=== PATIENT | female | born 1985 | race Caucasian/White ===

== ENCOUNTER 2022-10-06 22:53 | Emergency (ER) | payer BC, SELFPAY ==
--- NOTE | ~2022-10-06 | XR_ITS ---
EXAMINATION: XR CHEST CLINICAL INFORMATION: Chest pain COMPARISON: None available. TECHNIQUE: Frontal view of the chest was obtained. FINDINGS: No significant abnormality is noted involving the heart, lungs, mediastinum, bony thorax or soft tissues. XR/XR chest 1V IMPRESSION: Unremarkable examination.
[2022-10-06 22:58] VITALS: BP 122/78; PULSE 98; O2SAT 96; BMI 36.8
--- NOTE | 2022-10-06 22:59 | ECG_ITS ---
Test Reason : CHEST PAIN Blood Pressure : / mmHG Vent. Rate : 095 BPM Atrial Rate : 095 BPM P-R Int : 124 ms QRS Dur : 064 ms QT Int : 362 ms P-R-T Axes : 037 041 036 degrees QTc Int : 454 ms Normal sinus rhythm T wave abnormality, consider anterior ischemia Abnormal ECG No previous ECGs available Referred By: Jessie Jade Electronically Signed By:Daniel Frias
[2022-10-06 23:12] VITALS: BP 108/51; PULSE 94; RESP 17; TEMP 37.2; O2SAT 93
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
--- OUTSIDE RECORDS SUMMARY | 2022-10-07 00:14 | XMS_ITS | Continuity of Care Document ---
Author Name Unknown Organization [facility] Address [address] [place] [address], 4t [place] [address]- Care Team Providers Care Nursing Informatics Clinical Analyst Name Role Phone Charles Zamora DO Primary Care Physician [id number] Date(s): 11/21/21 - 11/28/21 [facility] [address] [facility], 4th [place] [address]- Attending Physician: Jaycee Mcgee MD Referring Physician: Charles Zamora DO Allergies, Adverse Reactions, Alerts No Known Allergies Immunizations Given and Recorded Vaccine Date Status Refusal Reason tetanus/diphtheria/pertussis, acel(Tdap) 11/20/10 Given Medications cipro cipro, 0 Refills, Maintenance, 11/21/21 9:11:00 EDT Start Date: 11/21/21 Status: Ordered Liletta 52 mg intrauteral device 1 each = 52 mg, Vaginally, Once, Inserted 04/15/2016, # 1 each, 0 Refills, Soft Stop, 11/27/15 16:57:29 Start Date: 11/27/15 Status: Ordered magnesium oxide 400 mg oral tablet 1 tablet = 400 mg, By Mouth, Daily, # 100 tablet, 3 Refills, Maintenance, 08/05/20 17:35:00 EDT, [id number], Partial fill upon patient request if the prescription is for a schedule II opioid drug., 155, cm, 05/28/20 11:08:00 EST, Height Start Date: 08/05/20 Status: Ordered riboflavin 400 mg oral capsule 1 capsule = 400 mg, By Mouth, Daily, # 100 capsule, 3 Refills, Maintenance, 08/05/20 17:35:00 EDT, Capsule, [id number], Partial fill upon patient request if the prescription is for a scheduleII opioid drug., 155, cm, 05/28/20 11:08:00 Karen FREED. Start Date: 08/05/20 Status: Ordered Topamax 50 mg oral tablet See Instructions, 2 tablets in AM and 1 in PM, 0 Refills, Maintenance, 08/28/21 11:31:00 EDT, Tablet, Partial fill upon patient request if the prescription is for a schedule II opioid drug. 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
--- OUTSIDE RECORDS SUMMARY | 2022-10-07 00:14 | XMS_ITS | Continuity of Care Document ---
Author Name Unknown Organization [facility] Address [address] [facility], [address] [place] [address]- Care Team Providers Care Mobile Service Rv Technician Name Role Phone Charles Zamora DO Primary Care Physician [place] [facility] [place] [facility] [place] Date(s): 01/26/22 - 02/25/22 [facility] [address] [facility] [facility], 4th [place] [address]- Attending Physician: Qian Will Admitting Physician: AdmQian walden Referring Physician: AdmtrQian Allergies, Adverse Reactions, Alerts No Known Allergies Immunizations Given and Recorded Vaccine Date Status Refusal Reason tetanus/diphtheria/pertussis, acel(Tdap) 11/20/10 Given Medications cipro cipro, 0 Refills, Maintenance, 11/21/21 9:11:00 EDT Start Date: 11/21/21 Status: Ordered Citalopram By Mouth, Daily, 0 Refills, Maintenance, 12/02/21 17:30:00 EDT, Partial fill upon patient request if the prescription is for a schedule II opioid drug. Start Date: 12/02/21 Status: Ordered Diflucan 150 mg oral tablet 1 tablet = 150 mg, By Mouth, Once, # 1 tablet, 0 Refills, Soft Stop, 12/17/21 14:39:00 EDT, Tablet,[id number], Partial fill upon patient request if the prescription is for a schedule II opioid drug., 155, cm, 12/12/21 13:16:00 EDT, Height Start Date: 12/17/21 Status: Ordered Liletta 52 mg intrauteral device 1 each = 52 mg, Vaginally, Once, Inserted 04/15/2016, # 1 each, 0 Refills, Soft Stop, 11/27/15 16:57:29 EDT, [facility] Start Date: 11/27/15 Status: Ordered magnesium oxide 400 mg oral tablet 1 tablet = 400 mg, By Mouth, Daily, # 100 tablet, 3 Refills, Maintenance, 08/05/20 17:35:00 EDT, [facility]/pharmacy #[id number], Partial fill upon patient request if [...] scheduleII opioid drug., 155, cm, 05/28/20 11:08:00 EST, He... Start Date: 08/05/20 Status: Ordered Saxenda = 1.2 mg, Subcutaneous Infusion, Daily, 0 Refills, Maintenance, 12/02/21 17:29:00 EDT, Partial fillupon patient request if the prescription is for a schedule II opioid drug. Start Date: 12/02/21 Status: Ordered Topamax 50 mg oral tablet See Instructions, 2 tablets in AM and 1 in PM, 0 Refills, Maintenance, 08/28/21 11:31:00 EDT, Tablet, Partial fill upon patient request if the prescription is for a schedule II opioid drug. Start Date: 08/28/21 Status: Ordered Problem List Condition Confirmation Course Effective Dates Status Health St atus Informant Cystic fibrosis carrier detection Confirmed Active Obese class I Confirmed Active Social History Social History Type Response Smoking Status Former smoker, quit more than 30 days ago entered on: 03/14/19 Sex Patient Care team information Personnel Name: Anusitatravis Charles ROBERTO Address: Address: [address] [place] [address] [address] [place], [place] [address]
--- OUTSIDE RECORDS SUMMARY | 2022-10-07 00:14 | XMS_ITS | Continuity of Care Document ---
Author Name Unknown Organization [facility] Address [address] [facility], [address] d Floor, [address] [place] [address]- Care Team Providers Care Budget Examiner Name Role Phone Charles Zamora DO Primary Care Physician En[place] [facility] [place] Date(s): 08/05/20 - 09/04/20 [facility] [address], [address], [address] [place] [id number] Attending Physician: Qian Will Admitting Physician: AdmtrQian Referring Physician: Admtr, Ar8 Allergies, Adverse Reactions, Alerts Substance Reaction Severity Status NKA Active Immunizations Given and Recorded Vaccine Date Status Refusal Reason tetanus/diphtheria/pertussis, acel(Tdap) 11/20/10 Given Medications Liletta 52 mg intrauteral device 1 each [...] EST, He... Start Date: 08/05/20 Status: Ordered Topamax Tablet By Mouth, 2 times a day, Refills 0, Maintenance, 03/14/19 18:13:13 EST Start Date: 03/14/19 Status: Ordered topiramate 100 mg oral tablet 1 tablet = 100 mg, By Mouth, 2 times a day, # 180 tablet, 3 Refills, Maintenance, 08/05/20 17:38:00EDT, Tablet, [facility]/pharm[facility] #[id number], Partial fill upon patient request if the prescription is for a schedule II opioid drug., 155, cm, 05/28/20 11:08:00 ES... 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
--- OUTSIDE RECORDS SUMMARY | 2022-10-07 00:14 | XMS_ITS | Continuity of Care Document ---
Author Name Unknown Organization [facility] Address Unknown Care Team Providers Care Compliance Consultant Name Role Phone Charles Zamora DO Primary Care Physician [place] [facility] [place](s): 03/03/21 - 04/02/21 [facility] Attending Physician: Qian Will Admitting Physician: Qian Will Referring Physician: Qian Will Allergies, Adverse Reactions, Alerts Substance Reaction Severity [...] EST, Height Start Date: 08/05/20 Status: Ordered meclizine 12.5 mg oral tablet See Instructions, 1 tablet By Mouth as needed for vertigo/ dizziness. Not to exceed 2 doses in a day., # 15 tablet, 0 Refills, Maintenance, 11/11/20 18:08:00 EDT, [id number], Partial fill upon patient request if the prescription is for a sched... Start Date: 11/11/20 Status: Ordered riboflavin 400 mg oral capsule [...] day, # 180 tablet, 3 Refills, Maintenance, 03/03/21 17:02:00EDT, Tablet, [id number], Partial fill upon patient request if the prescription is for a schedule II opioid drug., 155, cm, 05/28/20 11:08:00 ES... Start Date: 03/03/21 Status: Ordered topiramate 50 mg oral tablet 1 tablet = 50 mg, By Mouth, Daily, # 90 tablet, 3 Refills, Maintenance, 03/03/21 17:02:00 EDT, [facility]/pharmacy #[id number], Partial fill upon patient request if the prescription is for a schedule II opioid drug., 155, cm, 05/28/20 11:08:00 EST, Height Start Date: 03/03/21 Status: Ordered Wellbutrin By Mouth, 0 Refills, Maintenance, 03/14/19 18:13:26 EST Start Date: 03/14/19 Status: Ordered Zofran 4 mg oral tablet 1 tablet = 4 mg, By Mouth, Once, 1 tablet by mouth as needed for nausea, # 15 tablet, 0 Refills, Soft Stop, 11/11/20 18:08:00 EDT, Tablet, [id number], Partial fill upon patient request if theprescription is for a schedule II opioid drug., 155... 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
--- OUTSIDE RECORDS SUMMARY | 2022-10-07 00:14 | XMS_ITS | Continuity of Care Document ---
Author Name Unknown Organization [facility] Address [address] [facility], 4t [place] [address]- Care Team Providers Care Burnt Lime Drawer Name Role Phone Charles Zamora DO Primary Care Physician En[facility] [place] Date(s): 11/18/21 - 12/18/21 [facility] [address] [facility], 4th [place] [address]- Allergies, Adverse Reactions, Alerts No Known Allergies [...] 0 Refills, Soft Stop, 12/17/21 14:39:00 EDT, Tablet,[facility]/pharmacy #[id number], Partial fill upon patient request if the prescription is for a schedule II opioid drug., 155, cm, 12/12/21 13:16:00 EDT, Height Start Date: 12/17/21 Status: Ordered Liletta 52 mg intrauteral device 1 each = 52 mg, Vaginally, Once, Inserted 04/15/2016, # 1 each, 0 Refills, Soft Stop, 11/27/15 16:57:29 EDT, [facility] Start Date: 11/27/15 Status: [...] carrier detection(Confirmed) Active Obese class I(Confirmed) Active Social History Social History Type Response Smoking Status Former smoker, quit more than 30 days ago entered on: 03/14/19 Sex
--- OUTSIDE RECORDS SUMMARY | 2022-10-07 00:14 | XMS_ITS | Continuity of Care Document ---
Author Name Unknown Organization [facility] Address Unknown Care Team Providers Care Wafer Substrate Tester Name Role Phone Charles Zamora DO Primary Care Physician En[facility] [place] Date(s): 03/03/21 - 04/02/21 [facility] Allergies, Adverse Reactions, Alerts Substance Reaction Severity [...] tablet, 3 Refills, Maintenance, 03/03/21 17:02:00 EDT, [id number], Partial fill upon patient [...]
--- OUTSIDE RECORDS SUMMARY | 2022-10-07 00:14 | XMS_ITS | Continuity of Care Document ---
Author Name Unknown Organization [facility] Address Unknown Care Team Providers Care Aircraft Cleaning Supervisor Name Role Phone Charles Zamora DO Primary Care Physician [place] [facility] [place] ACCT R [id number] Date(s): 11/14/20 - 02/06/21 [facility] Attending Physician: Thelma Batres Admitting Physician: Themla Batres Referring Physician: Charles Zamora DO Allergies, Adverse Reactions, Alerts Substance Reaction Severity [...] tablet, 3 Refills, Maintenance, 08/05/20 17:38:00EDT, Tablet, [id number], Partial fill upon patient [...]
--- OUTSIDE RECORDS SUMMARY | 2022-10-07 00:14 | XMS_ITS | Continuity of Care Document ---
Author Name Unknown Organization [facility] Address Unknown Care Team Providers Care Medical Malpractice Paralegal Name Role Phone Charles Zamora DO Primary Care Physician [place] [facility] [place] [id number] Date(s): 04/08/21 - 06/27/21 [facility] Attending Physician: Thelma Batres Admitting Physician: Thelma Batres Referring Physician: Charles Zamora DO Allergies, [...] EST, He... 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
--- OUTSIDE RECORDS SUMMARY | 2022-10-07 00:14 | XMS_ITS | Continuity of Care Document ---
Author Name Unknown Organization [facility] Address [address] [facility], [address] d Floor, [address] [place] [address]- Care Team Providers Care Steam Engineer Name Role Phone Charles Zamora DO Primary Care Physician [place] [facility] [place]10[place] - 01/24/22 [facility] [address], [address], [address] [place] [address]- Attending Physician: Ananya Rahman MD Admitting Physician: Ananya Rahman MD Allergies, Adverse Reactions, Alerts No Known Allergies [...] 0 Refills, Soft Stop, 12/17/21 14:39:00 EDT, Tablet,[id number], Partial fill upon patient request if the prescription is for a schedule II opioid drug., 155, cm, 12/12/21 13:16:00 EDT, Height Start Date: 12/17/21 Status: Ordered Liletta 52 mg intrauteral device 1 each = 52 mg, Vaginally, Once, Inserted 04/15/2016, # 1 each, 0 Refills, Soft Stop, 11/27/15 16:57:29 EDT, [facility] Start Date: 11/27/15 Status: [...] 30 days ago entered on: 03/14/19 Sex Care Team Personnel Name: Noah DO Charles Address: [address] [place] [address] [address] [place], [place] [address]
--- OUTSIDE RECORDS SUMMARY | 2022-10-07 00:14 | XMS_ITS | Continuity of Care Document ---
Author Name Unknown Organization [facility] Address [address] [facility], [address] Floor, [address] [place] [address]- Care Team Providers Care Respiratory Therapy Technician Name Role Phone Charles Zamora DO Primary Care Physician [place] [facility] [place](s): 06/06/20 - 07/06/20 [facility] [address], [address], [address] [place] [id number] Allergies, Adverse Reactions, Alerts Substance Reaction Severity Status NKA Active Immunizations Given and Recorded Vaccine Date Status Refusal Reason tetanus/diphtheria/pertussis, acel(Tdap) 11/20/10 Given Medications Liletta 52 mg intrauteral device 1 each = 52 mg, Vaginally, Once, Inserted 04/15/2016, # 1 each, 0 Refills, Soft Stop, 11/27/15 16:57:29 Start Date: 11/27/15 Status: Ordered Topamax Tablet By Mouth, 2 times a day, Refills 0, Maintenance, 03/14/19 18:13:13 EST Start Date: 03/14/19 Status: Ordered Wellbutrin By Mouth, 0 Refills, Maintenance, 03/14/19 18:13:26 EST Start Date: 03/14/19 Status: Ordered Problem List Condition Effective Dates Status Health Status Inform ant 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
--- OUTSIDE RECORDS SUMMARY | 2022-10-07 00:14 | XMS_ITS | Continuity of Care Document ---
Author Name Unknown Organization [facility] Address [address] [place] [address]- Care Team Providers Care Senior Air Director Name Role Phone Charles Zamora DO Primary Care Physician [place] [facility] [place] [id number] Date(s): 12/04/21 - 01/09/[address] [address] Attending Physician: Adrian Burton MD Admitting Physician: Adrian Burton MD Referring Physician: Adrian Burton MD Allergies, Adverse Reactions, Alerts No Known [...] 0 Refills, Soft Stop, 12/17/21 14:39:00 EDT, Tablet,[facility]acy #[id number], Partial fill upon patient request if the prescription is for a schedule II opioid drug., 155, cm, 12/12/21 13:16:00 EDT, Height Start Date: 12/17/21 Status: Ordered Liletta 52 mg intrauteral device 1 each = 52 mg, Vaginally, Once, Inserted 04/15/2016, # 1 each, 0 Refills, Soft Stop, 11/27/15 16:57:29 EDT, [facility] Start Date: 11/27/15 Status: Ordered [...] on: 03/14/19 Sex Care Team Personnel Name: Charles Zamora DO Address: [address] [place] [address] [address] [place] [address]-
--- OUTSIDE RECORDS SUMMARY | 2022-10-07 00:14 | XMS_ITS | Continuity of Care Document ---
Author Name Unknown Organization [facility] Address [address] [place] [address]- Care Team Providers Care Glass Rolling Machine Operator Name Role Phone DaviCharles rosenberg DO Primary Care Physician Encounter [facility] [place] Date(s): 01/04/22 - 02/18/[address] [address] Attending Physician: Jaycee Mcgee MD Admitting Physician: Jaycee Mcgee MD Referring Physician: Jaycee Mcgee MD Allergies, Adverse Reactions, Alerts No Known [...] 0 Refills, Soft Stop, 12/17/21 14:39:00 EDT, Tablet,[facility] #[id number], Partial fill upon patient request if the prescription is for a schedule II opioid drug., 155, cm, 12/12/21 13:16:00 EDT, Height Start Date: 12/17/21 Status: Ordered Liletta 52 mg intrauteral device 1 each = 52 mg, Vaginally, Once, Inserted 04/15/2016, # 1 each, 0 Refills, Soft Stop, 11/27/15 16:57:29 EDT, [facility] Start Date: 11/27/15 Status: Ordered [...] Sex Patient Care team information Personnel Name: Noah DO Charles Address: Address: [address] [place] [address] [address] [place], [place] [address]
--- OUTSIDE RECORDS SUMMARY | 2022-10-07 00:14 | XMS_ITS | Continuity of Care Document ---
Author Name Unknown Organization [facility] nTURN8s [facility] Address [address] [place] [address], 4t [place] [address]- Care Team Providers Care Audit Machine Operator Name Role Phone Charles Zamora DO Primary Care Physician [id number]12[facility] - 12/19/21 [facility] [address] [facility], 4th Floor [place], [place] [address] Attending Physician: Jaycee Mcgee MD Allergies, Adverse Reactions, [...] 0 Refills, Soft Stop, 12/17/21 14:39:00 EDT, Tablet,[id number], Partial fill upon patient request if the prescription is for a schedule II opioid drug., 155, cm, 12/12/21 13:16:00 EDT, Height Start Date: 12/17/21 Status: Ordered Liletta 52 mg intrauteral device 1 each = 52 mg, Vaginally, Once, Inserted 04/15/2016, # 1 each, 0 Refills, Soft Stop, 11/27/15 16:57:29 EDT, [facility] Start Date: 11/27/15 Status: [...] oldest [Reference Range]: 1 Height 155 cm (12/12/21 1:16 PM) Weight 72.72 kg (12/12/21 1:16 PM) Body Mass Index [18.5-24.99] 30.27 *>HHI* (12/12/21 1:16 PM) Blood Pressure [90-138/55-84 mm Hg] 127/ 70mm Hg (12/12/21 1:16 PM) Blood pressure sites Arm, left (12/12/21 1:16 PM) Weight Obtained Via Standing scale (12/12/21 1:16 PM) Social History Social History Type Response Smoking Status Former smoker, quit more than 30 days ago entered on: 03/14/19 Sex
--- OUTSIDE RECORDS SUMMARY | 2022-10-07 00:14 | XMS_ITS | Continuity of Care Document ---
Author Name Unknown Organization [facility] Address [address] [place] [address]- Care Team Providers Care Instructional Designer Name Role Phone Charles Zamora DO Primary Care Physician Encounter [facility] Date(s): 10/03/21 - 01/31/[address] [address]- Attending Physician: Adrian Burton MD Admitting Physician: Adrian Burton MD Referring Physician: Charles Zamora DO Allergies, [...] 0 Refills, Soft Stop, 12/17/21 14:39:00 EDT, Tablet,[facility]/pharmacy #[id number], Partial fill upon patient request if the prescription is for a schedule II opioid drug., 155, cm, 12/12/21 13:16:00 EDT, Height Start Date: 12/17/21 Status: Ordered Liletta 52 mg intrauteral device 1 each = 52 mg, Vaginally, Once, Inserted 04/15/2016, # 1 each, 0 Refills, Soft Stop, 11/27/15 16:57:29 EDT, [facility] Start Date: 11/27/15 Status: [...] Sex Patient Care team information Personnel Name: Charles Zamora DO Address: Address: [address] [place] [address] [address] [place], [place] [address]
--- OUTSIDE RECORDS SUMMARY | 2022-10-07 00:14 | XMS_ITS | Continuity of Care Document ---
Author Name Unknown Organization [facility] Address Unknown Care Team Providers Care Motorcycle Mechanic Name Role Phone Charles Zamora DO Primary Care Physician Encounter [facility] R [id number] Date(s): 05/26/21 - 06/26/21 [facility] Attending Physician: Thelma Batres Admitting Physician: [...]
--- OUTSIDE RECORDS SUMMARY | 2022-10-07 00:14 | XMS_ITS | Continuity of Care Document ---
Author Name Unknown Organization [facility] Address [address] [facility], 4t [place] [address]- Care Team Providers Care Automation Qa Lead Name Role Phone Charles Zamora DO Primary Care Physician Encounter [facility] Date(s): 12/15/21 - 02/25/22 [facility] [address] [facility], 4th [place], [place] [address] Attending Physician: Jaycee Mcgee MD Allergies, Adverse [...] 0 Refills, Soft Stop, 12/17/21 14:39:00 EDT, Tablet,[facility]/pharmacy #[id number], Partial fill upon patient request if the prescription is for a schedule II opioid drug., 155, cm, 12/12/21 13:16:00 EDT, Height Start Date: 12/17/21 Status: Ordered Liletta 52 mg intrauteral device 1 each = 52 mg, Vaginally, Once, Inserted 04/15/2016, # 1 each, 0 Refills, Soft Stop, 11/27/15 16:57:29 EDT, [facility] Start Date: 11/27/15 Status: [...] Personnel Name: Charles Zamora DO Address: Address: [address] [place] [address] [address] [place], [place] [address]
--- OUTSIDE RECORDS SUMMARY | 2022-10-07 00:15 | XMS_ITS | Continuity of Care Document ---
Author Name Unknown Organization [facility] Address [address] [facility], 3[address] d Floor, [address] [place] [address]- Care Team Providers Care General Accounting Clerk Name Role Phone Charles Zamora DO Primary Care Physician En[facility] Date(s): 07/02/20 - 08/01/20 [facility] [address], 3[address] Floor, [address] [place] [address] Allergies, Adverse Reactions, Alerts Substance Reaction Severity [...]
--- OUTSIDE RECORDS SUMMARY | 2022-10-07 00:15 | XMS_ITS | Continuity of Care Document ---
Author Name Unknown Organization [facility] Address Unknown Care Team Providers Care Shift Superintendent Caustic Cresylate Name Role Phone Charles Zamora DO Primary Care Physician Encounter [facility] Date(s): 04/08/21 - 05/08/21 [facility] Allergies, Adverse Reactions, Alerts Substance [...]
--- OUTSIDE RECORDS SUMMARY | 2022-10-07 00:15 | XMS_ITS | Continuity of Care Document ---
Author Name Unknown Organization [facility] Address Unknown Care Team Providers Care Middle School Technology Teacher Name Role Phone Charles Zamora DO Primary Care Physician Encounter [facility] Date(s): 05/27/21 - 06/26/21 [facility] Attending Physician: Qian Will Admitting Physician: Qian Will Referring Physician: Qian Will Allergies, Adverse Reactions, Alerts No Known Allergies [...]
--- OUTSIDE RECORDS SUMMARY | 2022-10-07 00:15 | XMS_ITS | Continuity of Care Document ---
Author Name Unknown Organization [facility] Address [address] [facility], [address] Floor, [address] [place] [address]- Care Team Providers Care Harvesting Supervisor Name Role Phone Charles Zamora DO Primary Care Physician Encounter [facility] Date(s): 12/25/21 - 01/24/22 [facility] [address] [facility], 3[address] Floor, [address] [place] [address]- Attending Physician: Qian Will Admitting Physician: AdmtrQian Referring Physician: Admtr, Ar8 Allergies, Adverse Reactions, Alerts No Known Allergies [...] 0 Refills, Soft Stop, 12/17/21 14:39:00 EDT, Tablet,[facility]/pharmacy #[id number], Partial fill upon patient request if the prescription is for a schedule II opioid drug., 155, cm, 12/12/21 13:16:00 EDT, Height Start Date: 12/17/21 Status: Ordered Liletta 52 mg intrauteral device 1 each = 52 mg, Vaginally, Once, Inserted 04/15/2016, # 1 each, 0 Refills, Soft Stop, 11/27/15 16:57:29 EDT, [facility] Start Date: 11/27/15 Status: [...] Team Personnel Name: Charles Zamora DO Address: [address] [place] [address] [address] [place], [place] [address]
--- OUTSIDE RECORDS SUMMARY | 2022-10-07 00:15 | XMS_ITS | Continuity of Care Document ---
Author Name Unknown Organization [facility] Address Unknown Care Team Providers Care Milk Inspector Name Role Phone Charles Zamora DO Primary Care Physician Encounter [facility] Date(s): 02/06/21 - 03/08/21 [facility] Allergies, Adverse Reactions, Alerts Substance Reaction [...]
--- OUTSIDE RECORDS SUMMARY | 2022-10-07 00:15 | XMS_ITS | Continuity of Care Document ---
Author Name Unknown Organization [facility] Address Unknown Care Team Providers Care Emergency Dispatch Operator Name Role Phone Charles Zamora DO Primary Care Physician [place] [facility] Date[place]s): 05/26/21 - 06/25/21 [facility] Allergies, Adverse Reactions, Alerts No Known Allergies [...]
--- OUTSIDE RECORDS SUMMARY | 2022-10-07 00:15 | XMS_ITS | Continuity of Care Document ---
Author Name Unknown Organization [facility] Address [address] [place] [address]- Care Team Providers Care Radiology Asst Name Role Phone Charles Zamora DO Primary Care Physician Encounter [facility] Date(s): 09/07/22 - 09/07/[address] [address]- Encounter Diagnosis Chest pain(Final) - 09/07/22 Chest pressure(Final) - 09/07/22 Discharge Disposition: A-D/C Home Attending Physician: Ben Coppola MD Admitting Physician: Ben Coppola MD Referring Physician: Not on Staff, Referring MD Allergies, Adverse Reactions, Alerts No Known Allergies Immunizations Given and Recorded Vaccine Date Status Refusal Reason tetanus/diphtheria/pertussis, acel(Tdap) 11/20/10 Given Medications cipro cipro, 0 Refills, Maintenance, 11/21/21 9:11:00 EDT Start Date: 11/21/21 Status: Ordered Diflucan 150 mg oral tablet 1 tablet = 150 mg, By Mouth, Once, # 1 tablet, 0 Refills, Soft Stop, 12/17/21 14:39:00 EDT, Tablet,[facility]/pharmacy #[id number], Partial fill upon patient request if the prescription is for a schedule II opioid drug., 155, cm, 12/12/21 13:16:00 EDT, Height Start Date: 12/17/21 Status: Ordered Liletta 52 mg intrauteral device 1 each = 52 mg, Vaginally, Once, Inserted 04/15/2016, # 1 each, 0 Refills, Soft Stop, 11/27/15 16:57:29 EDT, [facility] Start Date: 11/27/15 Status: Ordered [...] 3 Refills, Maintenance, 08/05/20 17:35:00 EDT, Capsule, [facility]/pharmacy #[id number], Partial fill upon patient request if the prescription is for a scheduleII opioid drug., 155, cm, 05/28/20 11:08:00 EST, He... Start Date: 08/05/20 Status: Ordered Saxenda = 1.2 mg, Subcutaneous Infusion, Daily, 0 Refills, Maintenance, 12/02/21 17:29:00 EDT, Partial fillupon patient request if the prescription is for a schedule II opioid drug. Start Date: 12/02/21 Status: Ordered sertraline 25 mg oral tablet 1 tablet = 25 mg, By Mouth, Daily, # 30 tablet, 0 Refills, Maintenance, 09/07/22 9:50:00 EDT, Tablet, Partial fill upon patient request if the prescription is for a schedule II opioid drug. Start Date: 09/07/22 Status: Ordered Topamax 50 mg oral tablet See Instructions, 2 tablets in AM and 1 in PM, 0 Refills, Maintenance, 08/28/21 11:31:00 EDT, Tablet, Partial fill upon patient request if the prescription is for a schedule II opioid drug. 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 FINDINGS: LINES AND TUBES: None. LUNGS AND PLEURA: Clear lungs. Normal pulmonary vascularity. No pleural effusion. No pneumothorax. HEART, MEDIASTINUM AND ALCIDES: Mild prominence of the cardiac silhouette particularly on the frontal view which may be due to magnification. Normal mediastinal and hilar contour. BONES AND SOFT TISSUES: No acute abnormality. IMPRESSION: No acute abnormality. Possible mild prominence of the cardiac silhouette. No evidence of pulmonary vascular congestion, focal bilateral lung parenchymal infiltrates or CHF noted. WSN: [id number] Ordering Physician: Tushar Arthur Dictated By: Jean Carlos Ibarra MD, V Dictated Date/Time: 09/07/22 10:51 a Reviewed By: Jean Carlos Ibarra MD, V Signed By: Jean Carlos Ibarra MD, V Signed Date/Time: 09/07/22 10:51 am Transcribed By: CARLOS Transcribed Date/Time: 09/07/22 10:50 am Vital Signs Most recent to oldest [Reference Range]: 1 2 3 Height 155 cm (09/07/22 11:01 AM) 155 cm (09/07/22 10:07 AM) 155 cm (09/07/22 9:49 AM) Weight 87.4 kg (09/07/22 9:49 AM) Oxygen Saturation [94-100 %] 96 % (09/07/22 11:01 AM) 98 % (09/07/22 10:07 AM) 96 % (09/07/22 9:49 AM) Pulse Rate [55-90 bpm] 70 bpm (09/07/22 11:01 AM) 62 bpm (09/07/22 10:07 AM) 70 bpm (09/07/22 9:49 AM) Blood Pressure [90-138/55-84 mm Hg] 113/72mm Hg (09/07/22 11:01 AM) 128/69mm Hg (09/07/22 10:07 AM) 131/80mm Hg (09/07/22 9:49 AM) Respiratory Rate [16-30 br/min] 20 br/min (09/07/22 11:01 AM) 18 br/min (09/07/22 10:07 AM) 17 br/min (09/07/22 9:49 AM) Temperature [96.8-100.4 DegF] 97 DegF (09/07/22 9:49 AM) Mode of Delivery (Oxygen) Room air (09/07/22 11:01 AM) Room air (09/07/22 10:07 AM) Room air (09/07/22 9:49 AM) Blood pressure sites Arm, right (09/07/22 11:01 AM) Arm, left (09/07/22 10:07 AM) Arm, right (09/07/22 9:49 AM) Temperature Route Oral (09/07/22 9:49 AM) Dry Weight 87.4 kg (09/07/22 9:49 AM) Social History Social History Type Response Smoking Status Former smoker, quit more than 30 days ago entered on: 03/14/19 Sex Note * Jena Morse MD: PERFORM, SIGN, VERIFY Event Display: Patient Education Handout Authored Date: [id number] * Jena Morse MD: PERFORM Event Display: Patient Education Leaflets Authored Date: [id number] Noncardiac Chest Pain ?? [id number] Noncardiac Chest Pain In most cases, people who come to the emergency room with chest pain don???t have a problem with their heart. Instead, the pain is caused by other conditions. It's important for the healthcare team to be sure you are not having a life-threatening cause for chest pain such as: ??? Heart attack ??? Blood clot in the lungs ??? Collapsed lung ??? Ruptured esophagus ??? Tearing of the aorta Once these major causes have been ruled out, you may have further evaluation for other causes of chest pain. These may be problems with the lungs, muscles, bones, digestive tract, nerves, or mental health. They include: ??? Inflammation around the lungs (pleurisy) ??? Collapsed lung (pneumothorax) ??? Lung inflammation (pleuritis or pneumonitis) ??? Fluid around the lung (pleural effusion) ??? Lung cancer (rare cause of chest pain) ??? Inflamed cartilage between the ribs (costochondritis) ??? Fibromyalgia ??? Rheumatoid arthritis ??? Chest wall strain ??? Reflux ??? Stomach ulcer ??? Spasms of the esophagus ??? Gall stones ??? Gallbladder inflammation ??? Panic or anxiety attacks ??? Emotional distress Your pain doesn???t seem to be coming from your heart. But sometimes the signs of a serious problemtake more time to appear. Continue to watch for the warning signs listed below. Home care Follow these guidelines when caring for yourself at home: ??? Rest today and don't do any strenuousactivity. ??? Take any prescribed medicine as directed. ?? Follow-up care Follow up with your healthcare provider as advised. ?? Call 911 Call 911 if any of these occur: ??? A change in the type of pain: if it feels different, becomes more severe, lasts longer, or begins to spread into your shoulder, arm, neck, jaw or back ??? Shortness of breath or increased pain with breathing ??? Weakness, dizziness, or fainting ??? Rapid heart beat ??? Crushing sensation in your chest ?? When to seek medical advice Call your healthcare provider right away if any of these occur: ??? Cough with dark colored sputum (phlegm) or blood ??? Fever of 100.4??F (38??C) or higher, or as directed by your healthcare provider ??? Swelling, pain or redness in one leg ?? Last Reviewed Date: 2021 ?? [id number] [employer]. All rights reserved. This information is not intended as a substitute for professional medical care. Always follow your healthcare professional's instructions. ?? Laboratory * [facility] , CIS S: TRANSCRIREY Ibarra MD, Jean Carlos V: VERIFY Event Display: Result: Authored Date: [id number] Chest 2 Views Frontal and Lat Hx of Present Illness: PT C O central CP onset yesterday @6am, nonraditing, no aggravating factors,constant pressure, 6 10.; Reason: Other:; Chest Pain; Clinical Question(s): Other: COMPARISON: 03/23/2012. FINDINGS: LINES AND TUBES: None. LUNGS AND PLEURA: Clear lungs. Normal pulmonary vascularity. No pleural effusion. No pneumothorax. HEART, MEDIASTINUM AND ALCIDES: Mild prominence of the cardiac silhouette particularly on the frontal view which may be due to magnification. Normal mediastinal and hilar contour. BONES AND SOFT TISSUES: No acute abnormality. IMPRESSION: No acute abnormality. Possible mild prominence of the cardiac silhouette. No evidence of pulmonary vascular congestion, focal bilateral lung parenchymal infiltrates or CHF noted. WSN: [id number] Ordering Physician: Tushar Arthur Dictated By: Jean Carlos Ibarra MD, V Dictated Date/Time: 09/07/22 10:51 a Reviewed By: Jean Carlos Ibarra MD, V Signed By: Jean Carlos Ibarra MD, V Signed Date/Time: 09/07/22 10:51 am Transcribed By: CARLOS Transcribed Date/Time: 09/07/22 10:50 am Patient Care team information Care Team Personnel Name: Charles Zamora DO Position: [facility] Physician (General Medicine) Member Role: PCP Address: Address: [address] [place], [place] [address] [place], [place] [address] Name: Jena Morse MD Position: [facility] Resident Member Role: ED Resident Address: Address: [address] [place] [address]- Name: Madhuri Kirby Position: [facility] ED TA [facility] Member Role: Patient Care Provider Name: Rachael Dyson RN Position: [facility] ED RN W/OE and Tasks Member Role: Patient Care Provider Name: Ben Coppola MD Position: [facility] ED Medicine MD Member Role: Admitting Physician Address: Address: [address] [place] [address]- Care Team Related Persons Name: JADE ASHLEY Address: [address] [place] [address]
--- OUTSIDE RECORDS SUMMARY | 2022-10-07 00:15 | XMS_ITS | Continuity of Care Document ---
Author Name Unknown Organization [facility] Address [address] [place] [address]- Care Team Providers Care Pattern Room Attendant Name Role Phone Charles Zamora DO Primary Care Physician En[place] [facility] [id number] Date(s): 01/01/22 - 01/31/22 [facility] [address] [place] [address] Attending Physician: Qian Will Admitting Physician: AdmtrQian Referring Physician: Admtr, ArGerardo Allergies, Adverse Reactions, Alerts No Known Allergies [...] 0 Refills, Soft Stop, 12/17/21 14:39:00 EDT, Tablet,[facility]/pharmacy #[id number], Partial fill upon patient request if the prescription is for a schedule II opioid drug., 155, cm, 12/12/21 13:16:00 EDT, Height Start Date: 12/17/21 Status: Ordered Liletta 52 mg intrauteral device 1 each = 52 mg, Vaginally, Once, Inserted 04/15/2016, # 1 each, 0 Refills, Soft Stop, 11/27/15 16:57:29 EDT, [facility] Start Date: 11/27/15 Status: [...] Personnel Name: Charles Zamora DO Address: Address: [address] [place] [address] [address] [place], [place] [address]
--- OUTSIDE RECORDS SUMMARY | 2022-10-07 00:15 | XMS_ITS | Continuity of Care Document ---
Author Name Unknown Organization [facility] Address [address] [place] [address], 4t [place] [address]- Care Team Providers Care Boilermaker Assembly And Erection Name Role Phone DavieugenioCharles avina DO Primary Care Physician Encounter [facility] Date(s): 08/29/21 - 11/19/21 [facility] [address] [facility], 4th [place] [address]- Attending Physician: Jaycee Mcgee MD Allergies, Adverse [...] He... Start Date: 08/05/20 Status: Ordered Topamax 50 [...]
== END 2022-10-07 00:28 | disposition home or self-care (01) ==
LOC: HO.ED 10-07 00:13
PROVIDERS: Emergency Provider Emergency Medicine Emergency Medical Services; PCP Internal Medicine
DX: Z04.1 Encounter for examination and observation following transport accident (principal); R07.9 Chest pain, unspecified; E11.9 Type 2 diabetes mellitus without complications; I10 Essential (primary) hypertension; F17.200 Nicotine dependence, unspecified, uncomplicated
CPT/HCPCS: 71045; 93005; 99283; 99285